=== PATIENT | female | born 1990 | race African-American/Black ===

== ENCOUNTER 2016-10-13 21:08 | Emergency (ER) | payer MEDICAID ==
[2016-10-14] MEDS ORDERED: KETOROLAC TROMETHAMINE INJ/PF 30 MG/1 ML SDV IV ONE (02:51)
--- NOTE | 2016-10-14 02:51 | ER Document Report ---
ED GI/ - General Mode of Arrival: Ambulatory Information source: Patient TRAVEL OUTSIDE OF THE [place] IN LAST 30 DAYS: No - HPI Patient complains to provider of: Abdominal pain, Dysuria Onset: Other - See history of present illness Timing/Duration: Gradual, Constant Quality of pain: Cramping Abortions: 1 Associated symptoms: Dizzy, Dysuria, Urinary frequency <MARY MURCIA - Last Filed: 10/14/16 03:49> <YOSI PAGAN - Last Filed: 10/14/16 05:43> - General Chief Complaint: Urinary Problem Stated Complaint: FREQUENT URINATION,LOWER ABDOMINAL PAIN Notes: Patient is a 26-year-old female presenting to the emergency department with symptoms of frequency, pelvic cramping, and serious. Patient was seen on 10/02 was 11 weeks . Patient had D&C on 10/03. Patient states that she has not had any vaginal bleeding since this procedure. Patient complains of her pelvic and abdominal pain while she urinates, he denies pain at the end of urinating, and also has pain and feels like she has to urinate again. Patient believes that her pain is getting worse. Patient has had these symptoms for 3 days. Patient was regularly taking vitamins. Patient has history of Graves' disease, section, the D&C, is a former smoker. Patient rates her pain as 5/5. Patient has no allergies. Patient does state she has been plan with her [employer] on Tuesday, however her pain was too great to wait until then. (MARY MURCIA) - Related Data Allergies/Adverse Reactions: No Known Allergies Allergy (Verified 08/21/16 09:54) Past Medical History - General Information source: Patient - Social History Smoking Status: Former Smoker Frequency of alcohol use: None Drug Abuse: None Family History: None Endocrine Medical History: Reports: Hx Graves' Disease, Hx Hyperthyroidism Past Surgical History: Reports: Hx Section - Immunizations Hx Diphtheria, Pertussis, Tetanus Vaccination: Yes <MARY MURCIA - Last Filed: 10/14/16 03:49> Review of Systems - Review of Systems Constitutional: No symptoms reported EENT: No symptoms reported Cardiovascular: See HPI, Dizziness Respiratory: No symptoms reported Gastrointestinal: See HPI, Abdominal pain Genitourinary: See HPI, Frequency, Pain Female Genitourinary: No symptoms reported. denies: Vaginal bleeding Musculoskeletal: No symptoms reported Skin: No symptoms reported Hematologic/Lymphatic: No symptoms reported Neurological/Psychological: See HPI, Headaches -: Yes All other systems reviewed and negative <AMANDEEPMARY PADILLA - Last Filed: 10/14/16 03:49> Physical Exam - Vital signs Interpretation: Normal - General General appearance: Appears well, Alert In distress: Mild - HEENT Head: Normocephalic, Atraumatic Eyes: Normal Pupils: PERRL Mucous membranes: Normal - Respiratory Respiratory status: No respiratory distress Chest status: Nontender Breath sounds: Normal Chest palpation: Normal - Cardiovascular Rhythm: Regular Heart sounds: Normal auscultation - Abdominal Inspection: Normal Distension: No distension Bowel sounds: Normal Tenderness: Tender - midline suprapubic tenderness to palpation Organomegaly: No organomegaly - Back Back: Normal, Nontender - Extremities General upper extremity: Normal inspection, Normal ROM, Normal strength General lower extremity: Normal inspection, Normal ROM, Normal strength - Neurological Neuro grossly intact: Yes Cognition: Normal Orientation: AAOx4 Reba Coma Scale Eye Opening: Spontaneous Crucible Coma Scale Verbal: Oriented Reba Coma Scale Motor: Obeys Commands Crucible Coma Scale Total: 15 Speech: Normal - Psychological Associated symptoms: Normal affect, Normal mood - Skin Skin Temperature: Hot Skin Moisture: Dry <TWINMARY - Last Filed: 10/14/16 03:49> Course - Laboratory Result Diagrams: 10/14/16 03:41 10/14/16 03:41 <YOSI PAGAN - Last Filed: 10/14/16 05:43> - Laboratory Laboratory results interpreted by me: 10/14/16 10/14/16 10/14/16 02:34 03:41 03:41 WBC 14.4 H RBC 2.95 L Hgb 8.5 L Hct 25.3 L RDW 16.0 H Seg Neuts % (Manual) 87 H Lymphocytes % (Manual) 3 L Abs Neuts (Manual) 12.5 H Abs Lymphs (Manual) 0.4 L AST 47 H ALT 66 H Alkaline Phosphatase 158 H Urine Protein 100 H Urine Blood MODERATE H Urine Nitrite POSITIVE H Ur Leukocyte Esterase LARGE H (YOSI PAGAN) Discharge <MARY MURCIA - Last Filed: 10/14/16 03:49> <YOSI PAGAN - Last Filed: 10/14/16 05:43> - Discharge Clinical Impression: Urinary tract infection Qualifiers: Urinary tract infection type: acute cystitis Hematuria presence: with hematuria Qualified Code(s): N30.01 - Acute cystitis with hematuria Condition: Stable Disposition: HOME, SELF-CARE Additional Instructions: Urinary Tract Infection: Your evaluation indicates that you have a urinary tract infection. This is due to germs growing in the bladder. This is a common problem. This infection usually responds quickly to antibiotics. Your antibiotic should be taken exactly as prescribed. Drink plenty of fluids -- three to four quarts a day. Occasionally, a bladder anesthetic will be prescribed to help stop the feeling of urgency until the antibiotic has a chance to clear the infection. This may cause your urine to be dark orange. Certain urine infections require a culture. If the doctor obtained a culture, the results will be back in two days. You should call to see if a change in treatment is needed. A repeat urinalysis after you finish treatment is often recommended. The physician will let you know if further testing is required. Call the doctor if you develop fever, chills, flank pain, inability to urinate, or blood in the urine. TAKE THE MEDICATION PRESCRIBED. DRINK PLENTY OF FLUIDS. REST. TAKE TYLENOL AND MOTRIN FOR PAIN. FOLLOW UP WITH [facility] ON TUESDAY. RETURN TO THE EMERGENCY ROOM IF ANY NEW OR WORSENING SYMPTOMS. Prescriptions: Sulfamethoxazole/Trimethoprim [Bactrim Ds Tablet] 1 tab PO BID #14 tablet Referrals: [facility] [Provider Group] - Follow up tomorrow Scribe Attestation: 10/14/16 05:41 I personally performed the services described in the documentation, reviewed and edited the documentation which was dictated to the scribe in my presence, and it accurately records my words and actions. (YOSI PAGAN) Scribe Documentation - Scribe Written by Scribmike:: Mary Murcia (10/14/16 04:15) <MARY MURCIA - Last Filed: 10/14/16 03:49>
[2016-10-14 02:58] LABS: APPEARANCE,URINE CLOUDY; BILIRUBIN,URINE NEGATIVE (NEGATIVE); GLUCOSE, URINE NEGATIVE (NEGATIVE); KETONES,URINE NEGATIVE (NEGATIVE); LEUKOCYTE ESTERASE,URINE LARGE (NEGATIVE); NITRITE,URINE POSITIVE (NEGATIVE); PROTEIN,URINE 100 mg/dL (NEGATIVE); UROBILINOGEN,URINE NEGATIVE mg/dL (<2.0)
[2016-10-14] MEDS ORDERED: CEFTRIAXONE 1 GM/D5W RTU 50 ML IV ONE (03:27)
[2016-10-14 04:04] LABS: HEMATOCRIT 25.3 % (36.0-47.0); HEMOGLOBIN 8.5 g/dL (12.0-15.5); HGB HCT DIFFERENCE 0.2; MEAN CORPUSCULAR HEMOGLOBIN 28.8 pg (27.0-33.4); MEAN CORPUSCULAR HGB CONC 33.5 g/dL (32.0-36.0); MEAN CORPUSCULAR VOLUME 86 fl (80-97); RED BLOOD COUNT 2.95 10^6/uL (3.72-5.28); WHITE BLOOD COUNT 14.4 10^3/uL (4.0-10.5)
[2016-10-14 04:22] LABS: ALANINE AMINOTRANSFERASE 66 U/L (9-52); ALKALINE PHOSPHATASE 158 U/L (38-126); ANION GAP 11 (5-19); ASPARTATE AMINO TRANSFERASE 47 U/L (14-36); BILIRUBIN,TOTAL 0.9 mg/dL (0.2-1.3); BLOOD UREA NITROGEN 16 mg/dL (7-20); CALCIUM 9.8 mg/dL (8.4-10.2); CARBON DIOXIDE 27 mmol/L (22-30); CHLORIDE 101 mmol/L (98-107); CREATININE RESULT 0.77 mg/dL (0.52-1.25); GLUCOSE 101 mg/dL (75-110); POTASSIUM 3.9 mmol/L (3.6-5.0); SODIUM 139.2 mmol/L (137-145); TOTAL PROTEIN 6.8 g/dL (6.3-8.2)
[2016-10-14 04:23] LABS: BASOPHILS % (MANUAL) 0 % (0-2); EOSINOPHILS % (MANUAL) 0 % (0-6); LYMPHOCYTES % (MANUAL) 3 % (13-45); TOTAL CELLS COUNTED 100
[2016-10-14 04:24] LABS: ANISOCYTOSIS 1+; POIKILOCYTOSIS SLIGHT; POLYCHROMASIA 1+
[2016-10-14 04:25] LABS: TARGET CELLS SLIGHT; TOXIC GRANULATION 1+
[2016-10-14] MEDS ORDERED: CIPROFLOXACIN HCL 500 MG TABLET PO ONE (04:26)
[2016-10-14] MEDS ORDERED: PHENAZOPYRIDINE HCL 200 MG TABLET PO ONE (05:39)
[2016-10-14] MEDS ORDERED: HYDROCODONE/ACETAMINOPHEN 5-325 MG 6 TAB/DSPK PO PRN (05:41)
[2016-10-14 06:06] VITALS: BP 122/88
== END 2016-10-14 06:05 | disposition home or self-care (01) ==
LOC: ER 21:08
DX: N30.01 Acute cystitis with hematuria (principal); R39.198 Other difficulties with micturition; R35.0 Frequency of micturition; R10.30 Lower abdominal pain, unspecified; R10.2 Pelvic and perineal pain; Z87.891 Personal history of nicotine dependence
CPT/HCPCS: 99283; 96374; 96375; 36415; 87086; 85025; 87088; 80053; 81001; 87186; J3490 ×2; J1885; J0696

== ENCOUNTER 2018-08-06 06:45 | Emergency (ER) | payer MEDICAID ==
--- NOTE | 2018-08-06 07:19 | ER Document Report ---
ED GI/ - General Mode of Arrival: Ambulatory Information source: Patient TRAVEL OUTSIDE OF THE [place] IN LAST 30 DAYS: No <SAIMA DEE - Last Filed: 08/06/18 07:31> <YOSI PAGAN - Last Filed: 08/06/18 10:25> - General Chief Complaint: Abdominal Pain Stated Complaint: ABDOMINAL PAIN Time Seen by Provider: 08/06/18 07:09 Notes: 28-year-old female who presents to the emergency department today with complaints of "abdominal tightness". Patient states that she feels "movements within her stomach" and she indicates that it moves from right to left above her umbilicus. Patient has been having these symptoms for 1 month. Patient states she has taken multiple home tests all of which were negative. Patient states that she has a history of Graves' disease she is not sure if this is something to do with her symptoms. Patient states her PCP "sucks" so she has not went to see them about these symptoms. Patient states her period lasts about two days, "always coming on the 26th or 27th" and she is having two periods a month. Asked when the other period is occuring if they "always come the 26th or 27th" and she states they do not come at any other time. It is impossible to clarify how she is having two a month. (SAIMA DEE) - Related Data Allergies/Adverse Reactions: No Known Allergies Allergy (Verified 08/21/16 09:54) Past Medical History - General Information source: Patient - Social History Smoking Status: Current Every Day Smoker Cigarette use (# per day): Yes Frequency of alcohol use: Occasional Drug Abuse: None Lives with: Family Family History: None Endocrine Medical History: Reports: Hx Graves' Disease, Hx Hyperthyroidism Past Surgical History: Reports: Hx Section - Immunizations Hx Diphtheria, Pertussis, Tetanus Vaccination: Yes <SAIMA DEE - Last Filed: 08/06/18 07:31> Review of Systems - Review of Systems Constitutional: No symptoms reported EENT: No symptoms reported Cardiovascular: No symptoms reported Respiratory: No symptoms reported Gastrointestinal: See HPI, Abdominal pain - "tightness" "movements within stomach" Genitourinary: No symptoms reported Female Genitourinary: No symptoms reported, Last menstrual period - Lasts about two days, "always coming on the 26th or 27th" and she is having them twice a month. Asked when the other period is occuring if they "always come the or " and she states they do not come at any other time. It is impossible to clarify how she is having two a month then. Musculoskeletal: No symptoms reported Skin: No symptoms reported Hematologic/Lymphatic: No symptoms reported Neurological/Psychological: No symptoms reported -: Yes All other systems reviewed and negative <SAIMA DEE - Last Filed: 08/06/18 07:31> Physical Exam <SAIMA DEE - Last Filed: 08/06/18 07:31> <YOSI PAGAN - Last Filed: 08/06/18 10:25> - Vital signs Vitals: Temp Pulse Resp BP Pulse Ox 98.5 F 79 18 104/71 99 08/06/18 06:50 08/06/18 06:50 08/06/18 06:50 08/06/18 06:50 08/06/18 06:50 - Notes Notes: Physical Exam: General: Alert, appears well. HEENT: Normocephalic. Atraumatic. PERRL. Extraocular movements intact. Oropharynx clear. Neck: Supple. Non-tender. Respiratory: No respiratory distress. Clear and equal breath sounds bilaterally. Cardiovascular: Regular rate and rhythm. Abdominal: Obese, minimal upper abdomen and RUQ ttp. No distension. Normal Bowel Sounds. Back: Non-tender. No deformity or step off. Extremities: Moves all four extremities. Upper extremities: Normal inspection. Normal ROM. Lower extremities: Normal inspection. No edema. Normal ROM. Neurological: Normal cognition. AAOx4. Normal speech. Psychological: Normal affect. Normal Mood. Skin: Warm. Dry. Normal color. (LEILAJOYCESAIMA) Course - Laboratory Result Diagrams: 08/06/18 07:38 08/06/18 07:38 - Diagnostic Test Radiology reviewed: Image reviewed, Reports reviewed - CT scan is unremarkable. <YOSI PAGAN - Last Filed: 08/06/18 10:25> - Vital Signs Vital signs: Temp Pulse Resp BP Pulse Ox 98.5 F 79 18 104/71 99 08/06/18 06:50 08/06/18 06:50 08/06/18 06:50 08/06/18 06:50 08/06/18 06:50 - Laboratory Laboratory results interpreted by me: 08/06/18 08/06/18 08/06/18 07:38 07:38 07:38 RDW 15.0 H Alkaline Phosphatase 140 H TSH 6.26 H Urine Blood Urine Urobilinogen 08/06/18 07:50 RDW Alkaline Phosphatase TSH Urine Blood LARGE H Urine Urobilinogen 4.0 H Discharge <SAIMA DEE - Last Filed: 08/06/18 07:31> <YOSI PAGAN - Last Filed: 08/06/18 10:25> - Discharge Clinical Impression: Upper abdominal pain Urinary tract infection Qualifiers: Urinary tract infection type: site unspecified Hematuria presence: without hematuria Qualified Code(s): N39.0 - Urinary tract infection, site not specified Condition: Stable Disposition: HOME, SELF-CARE Additional Instructions: Abdominal Pain: There are many causes of abdominal pain. Pain can mean a serious problem requiring surgery (such as appendicitis). It can also be an innocent problem that goes away on its own (such as a viral infection). Often, time must pass to determine the cause of pain. The physician does not feel that hospitalization is necessary, at present. Things may change within the next 24 hours. Call the doctor or come back for re- examination if any problems occur, such as: (1) Pain that becomes more severe, steady, or becomes concentrated in one specific area. Also, pain that is more severe with movement or coughing. (2) Vomiting that persists or becomes more frequent. (3) Blood in the vomitus, urine, or bowel movements. Blood in the stool may have a tarry or black appearance. (4) Shaking chills or fever greater than 100 degrees F. (5) The abdomen becomes more distended or swollen. (6) Bowel movements cease. (7) Failure to improve as expected. Urinary Tract Infection: Your evaluation indicates that you have a urinary tract infection. This is due to germs growing in the bladder. This is a common problem. This infection usually responds quickly to antibiotics. Your antibiotic should be taken exactly as prescribed. Drink plenty of fluids -- three to four quarts a day. Occasionally, a bladder anesthetic will be prescribed to help stop the feeling of urgency until the antibiotic has a chance to clear the infection. This may cause your urine to be dark orange. Certain urine infections require a culture. If the doctor obtained a culture, the results will be back in two days. You should call to see if a change in treatment is needed. A repeat urinalysis after you finish treatment is often recommended. The physician will let you know if further testing is required. Call the doctor if you develop fever, chills, flank pain, inability to urinate, or blood in the urine. Take the medication as prescribed. Drink plenty of fluids. Try taking a stool softener or laxative to help keep your bowels moving. Follow-up with your primary care provider if not improving. RETURN TO THE EMERGENCY ROOM IF ANY NEW OR WORSENING SYMPTOMS. Prescriptions: Sulfamethoxazole/Trimethoprim [Septra-Ds 800-160 mg Tablet] 1 tab PO BID #10 tablet Referrals: SACHI MARTIN III, MD [NO LOCAL MD] - Follow up as needed Scribe Attestation: 08/06/18 08:10 I personally performed the services described in the documentation, reviewed and edited the documentation which was dictated to the scribe in my presence, and it accurately records my words and actions. (YOSI PAGAN) Scribe Documentation - Scribe Written by Nadia:: Nadia Cole, 08/06/2018 0727 acting as scribe for :: Parisa <SAIMA DEE - Last Filed: 08/06/18 07:31>
[2018-08-06 08:02] LABS: ABSOLUTE EOSINOPHILS # (AUTO) 0.1 10^3/uL (0.0-0.6); ABSOLUTE LYMPHOCYTES (AUTO) 1.4 10^3/uL (0.5-4.7); ABSOLUTE MONOCYTES (AUTO) 0.3 10^3/uL (0.1-1.4); ABSOLUTE NEUT (AUTO) 2.4 10^3/uL (1.7-8.2); BASOPHILS % (AUTO) 0.8 % (0-2); EOSINOPHILS % (AUTO) 1.3 % (0-6); HEMATOCRIT 38.3 % (36.0-47.0); HEMOGLOBIN 12.7 g/dL (12.0-15.5); LYMPHOCYTES % (AUTO) 33.8 % (13-45); MEAN CORPUSCULAR HEMOGLOBIN 28.1 pg (27.0-33.4); MEAN CORPUSCULAR HGB CONC 33.1 g/dL (32.0-36.0); MEAN CORPUSCULAR VOLUME 85 fl (80-97); MONOCYTES % (AUTO) 7.3 % (3-13); PLATELET COUNT 269 10^3/uL (150-450); RED BLOOD COUNT 4.52 10^6/uL (3.72-5.28); SEGMENTED NEUTROPHILS % (AUTO) 56.8 % (42-78); TOTAL CELLS COUNTED % (AUTO) 100 %; WHITE BLOOD COUNT 4.2 10^3/uL (4.0-10.5)
[2018-08-06 08:10] LABS: ALANINE AMINOTRANSFERASE 27 U/L (9-52); ALBUMIN 4.2 g/dL (3.5-5.0); ALKALINE PHOSPHATASE 140 U/L (38-126); ANION GAP 11 (5-19); ASPARTATE AMINO TRANSFERASE 33 U/L (14-36); BILIRUBIN,DIRECT 0.2 mg/dL (0.0-0.4); BILIRUBIN,TOTAL 0.4 mg/dL (0.2-1.3); BLOOD UREA NITROGEN 13 mg/dL (7-20); CALCIUM 9.7 mg/dL (8.4-10.2); CARBON DIOXIDE 27 mmol/L (22-30); CHLORIDE 105 mmol/L (98-107); GLUCOSE 88 mg/dL (75-110); LIPASE 79.7 U/L (23-300); POTASSIUM 4.3 mmol/L (3.6-5.0); SODIUM 143.1 mmol/L (137-145); TOTAL PROTEIN 7.5 g/dL (6.3-8.2)
[2018-08-06 08:24] LABS: APPEARANCE,URINE SLIGHTLY-CLOUDY; BILIRUBIN,URINE NEGATIVE (NEGATIVE); COLOR,URINE AMBER; GLUCOSE, URINE NEGATIVE (NEGATIVE); KETONES,URINE NEGATIVE (NEGATIVE); LEUKOCYTE ESTERASE,URINE NEGATIVE (NEGATIVE); NITRITE,URINE NEGATIVE (NEGATIVE); PROTEIN,URINE NEGATIVE (NEGATIVE); URINE SPECIFIC GRAVITY 1.025
[2018-08-06 08:27] LABS: FREE T3 3.17 pg/mL (2.77-5.27); FREE T4 (FREE THYROXINE) 0.92 ng/dL (0.78-2.19)
[2018-08-06 08:40] LABS: THYROID STIMULATING HORMONE 6.26 uIU/mL (0.47-4.68)
--- NOTE | 2018-08-06 09:24 | RADIOLOGY REPORT (SQ) ---
EXAM DESCRIPTION: CT ABD/PELVIS WITH IV ONLY COMPLETED DATE/TIME: 08/06/2018 9:08 am REASON FOR STUDY: Upper abdominal pain for 1 month COMPARISON: 10/25/2015 TECHNIQUE: CT scan of the abdomen and pelvis performed using helical scanning technique with dynamic intravenous contrast injection. No oral contrast. Images reviewed with lung, soft tissue, and bone windows. Reconstructed coronal and sagittal MPR images reviewed. Delayed images for evaluation of the urinary system also acquired. All images stored on PACS. All CT scanners at this facility use dose modulation, iterative reconstruction, and/or weight based d osing when appropriate to reduce radiation dose to as low as reasonably achievable (ALARA). [facility]: Dose Right [facility]: CareDose [facility]: Dose Right [facility]: Teradose 4D [facility]: trippiece CONTRAST TYPE AND DOSE: contrast/concentration: Isovue 350.00 mg/ml; Total Contrast Delivered: 100.0 ml; Total Saline Delivered: 72.0 ml 100 mL IV of Omnipaque 350- low osmolar. RENAL FUNCTION: BUN 13 creatinine 0.5 RADIATION DOSE: CT Rad equipment meets quality standard of care and radiation dose reduction techniq ues were employed. CTDIvol: 13.1 - 16.7 mGy. DLP: 1742 mGy-cm.. LIMITATIONS: None. FINDINGS: LOWER CHEST: No significant findings. No nodules or infiltrates. LIVER: Normal size. No masses. No dilated ducts. SPLEEN: Normal size. No focal lesions. PANCREAS: No masses. No significant calcifications. No adjacent inflammation or peripancreatic fluid collections. Pancreatic duct not dilated. GALLBLADDER: No identified stones by CT criteria. No inflammatory changes to suggest cholecystitis. ADRENAL GLANDS: No significant masses or asymmetry. RIGHT KIDNEY AND URETER: Small area of cortical scarring of the posterior right kidney. Contour sim ilar to CT of 2016. No solid masses. No significant calcifications. No hydronephrosis or hydrour eter. LEFT KIDNEY AND URETER: No solid masses. No significant calcifications. No hydronephrosis or hydr oureter. AORTA AND VESSELS: No aneurysm. No dissection. Renal arteries, SMA, celiac without stenosis. RETROPERITONEUM: No retroperitoneal adenopathy, hemorrhage or masses. BOWEL AND PERITONEAL CAVITY: No masses or inflammatory changes. No free fluid or peritoneal masses. APPENDIX: Normal. PELVIS: No mass. No free fluid. Normal bladder. ABDOMINAL WALL: No masses. No hernias. BONES: No significant or acute findings. OTHER: No other significant finding. IMPRESSION: NO SIGNIFICANT OR ACUTE FINDING IN THE ABDOMEN OR PELVIS ON CT SCAN WITH IV CONTRAST. TECHNICAL DOCUMENTATION: JOB ID: [id number] Quality ID # [id number]: Final reports with documentation of one or more dose reduction techniques (e.g., Au tomated exposure control, adjustment of the mA and/or kV according to patient size, use of iterative reconstruction technique) 2010 [employer]- All Rights Reserved Reading location - IP/workstation name: [email or web address]
[2018-08-06 10:35] VITALS: BP 115/77
== END 2018-08-06 10:35 | disposition home or self-care (01) ==
LOC: ER 06:45
DX: N39.0 Urinary tract infection, site not specified (principal); R10.10 Upper abdominal pain, unspecified; R19.8 Other specified symptoms and signs involving the digestive system and abdomen; F17.210 Nicotine dependence, cigarettes, uncomplicated
CPT/HCPCS: 36415; 74177; 80053; 81001; 83690; 84439; 84443; 84481; 84703; 85025; 87086; 87088; 87186; 99284

== ENCOUNTER → 2020-01-25 | Outpatient (CLI) | payer SELFPAY ==
--- NOTE | 2020-01-25 10:21 | RADIOLOGY REPORT (SQ) ---
EXAM DESCRIPTION: FINGERS LEFT IMAGES COMPLETED DATE/TIME: 01/25/2020 10:05 am REASON FOR STUDY: CONTUSION OF UNSP FINGER WITH DAMAGE TO NAIL, INIT ENCNTR S60.10XA CONTUSION OF U NSP FINGER WITH DAMAGE TO NAIL, INIT COMPARISON: None. NUMBER OF VIEWS: Three views. TECHNIQUE: AP, lateral, and oblique images acquired of the left second and fourth fingers. LIMITATIONS: None. FINDINGS: MINERALIZATION: Normal. BONES: Acute comminuted and displaced fracture of the tuft of the 4th distal phalanx. There is also a nondisplaced fracture of the tuft of the 2nd distal phalanx. SOFT TISSUES: No radiopaque foreign body or subcutaneous emphysema. OTHER: No other significant finding. IMPRESSION: 1. Acute comminuted and displaced fracture of the tuft of the 4th distal phalanx. 2. Acute nondisplaced fracture of the tuft of the 2nd distal phalanx. TECHNICAL DOCUMENTATION: JOB ID: [id number] 2010 [employer]- All Rights Reserved Reading location - IP/workstation name: [email or web address]
== END ==
LOC: OD 09:54
PROVIDERS: ATTEND Nurse Practitioner Family
DX: S62.638A Displaced fracture of distal phalanx of other finger, initial encounter for closed fracture (principal); S62.668A Nondisplaced fracture of distal phalanx of other finger, initial encounter for closed fracture; X58.XXXA Exposure to other specified factors, initial encounter

== ENCOUNTER 2020-06-10 09:18 | Emergency (ER) | payer MEDICAID ==
[2020-06-10] MEDS ORDERED: DIPH/PERTUSS(ACELL)/TETANUS VAC/PF 0.5 ML SYR (>=10YO) IM ONE (10:48)
[2020-06-10] MEDS ORDERED: IBUPROFEN 800 MG TABLET PO ONE (10:48)
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
[2020-06-10] MEDS ORDERED: LIDOCAINE 1%/EPINEPHRINE INJ 20 ML VIAL INJ ONE (12:17)
--- NOTE | 2020-06-10 13:09 | ER Document Report ---
Doctor's Note Notes: 06/10/20 13:07 Requested to repair the wound by Dr. Freedman. 3 cm long by 2 cm wide by 2.5 cm deep wound to the left posterior thigh. No visible or palpable foreign bodies. No visible tendon injury. Anesthesia with 1% lidocaine with epinephrine 4 mL. Wound was moderately debrided to align edges. Copious irrigation with 500 mL normal saline. Suture was closed with 3 4.0 Vicryl sutures anterior and 7 4.0 Prolene sutures with good wound edge approximation patient tolerated well
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
[2020-06-10 14:33] VITALS: BP 131/75
== END 2020-06-10 14:37 | disposition home or self-care (01) ==
LOC: ER 09:18
DX: S71.112A Laceration without foreign body, left thigh, initial encounter (principal); S50.312A Abrasion of left elbow, initial encounter; S50.311A Abrasion of right elbow, initial encounter; S80.812A Abrasion, left lower leg, initial encounter; S80.811A Abrasion, right lower leg, initial encounter; V17.9XXA Unspecified pedal cyclist injured in collision with fixed or stationary object in traffic accident, initial encounter; Y93.55 Activity, bike riding; Z23 Encounter for immunization; Z87.891 Personal history of nicotine dependence
CPT/HCPCS: 99284; 90471; 90715; 12002; J3490 ×2